=== PATIENT | male | born 1960 | race Hispanic/Latino ===

== ENCOUNTER → 2018-09-02 | Day surgery (SDC) | payer OTHER ==
[~2018-09-02] VITALS: Ht 182.9 cm; Wt 86.2 kg
[~2018-09-02] MED LIST: ASPIRIN 81 MG CHEW TAB PO ONE; ASPIRIN 81 MG CHEW TAB PO STA; ASPIRIN 81 MG ENTERIC COATED PO SCH; FENTANYL CITRATE/PF 100MCG/2 ML INJ ONE; GLIMEPIRIDE2 MG PO; HEPARIN SOD/SOD CHLORIDE 2,000 ML ONE; IOPAMIDOL 370 MG/ML 200 ML INFUS..BTL INJ ONE; LIDOCAINE HCL 2% LOCAL 20 ML VIAL ONE; LOSARTAN POTASS25 MG PO; LOVASTATIN40 MG PO; LOW DOSE ASPIRI81 MG PO; MIDAZOLAM HCL 2 MG/2 ML VIAL ONE; NITROGLYCERIN 2% OINT 1 GM PKT TOP STA; SODIUM CHLORIDE 0.9% 1000ML 1,000 ML ONE
[2018-09-02 10:29] LABS: BASOPHILS # (AUTO) 0.1 (0.0-0.1); BASOPHILS % 0.4 % (0.0-1.0); EOSINOPHILS # (AUTO) 0.1 (0.0-0.4); EOSINOPHILS % 0.4 % (0.0-6.0); HEMATOCRIT 44.3 % (38.2-49.6); HEMOGLOBIN 15.3 g/dL (14.0-18.0); LYMPHOCYTES # (AUTO) 2.7 (1.0-3.2); LYMPHOCYTES % 23.5 % (18.0-39.1); MEAN CORPUSCULAR HEMOGLOBIN 32.1 pg (28-32); MEAN CORPUSCULAR HGB CONC 34.5 g/dL (31-35); MEAN CORPUSCULAR VOLUME 92.9 fL (81-99); MONOCYTES # (AUTO) 1.1 (0.2-0.8); MONOCYTES % 9.9 % (4.4-11.3); NEUTROPHILS # (AUTO) 7.3 (2.1-6.9); NEUTROPHILS % 64.5 % (38.7-80.0); PLATELET COUNT 251 x10e3/uL (140-360); RED BLOOD COUNT 4.77 x10e6/uL (4.3-5.7); RED CELL DISTRIBUTION WIDTH 12.7 % (11.7-14.4)
[2018-09-02 10:36] LABS: INR 0.93; PROTHROMBIN TIME 13.3 seconds (11.9-14.5)
[2018-09-02 10:37] LABS: PARTIAL THROMBOPLASTIN TIME 27.4 seconds (23.8-35.5)
[2018-09-02 10:46] LABS: ALANINE AMINOTRANSFERASE 109 IU/L (0-55); ALBUMIN 3.3 g/dL (3.5-5.0); ALBUMIN/GLOBULIN RATIO 0.9 (0.8-2.0); ALKALINE PHOSPHATASE 157 IU/L (40-150); ANION GAP 18.8 mmol/L (8-16); BLOOD UREA NITROGEN 14 mg/dL (7-26); BUN/CREATININE RATIO 13 (6-25); CALCIUM 9.8 mg/dL (8.4-10.2); CARBON DIOXIDE 21 mmol/L (22-29); CHLORIDE 98 mmol/L (98-107); CREATINE KINASE 468 IU/L (30-200); CREATININE, SERUM 1.07 mg/dL (0.72-1.25); EST GLOMERULAR FILTRATION RATE > 60 ML/MIN (60-); GLUCOSE 332 mg/dL (74-118); POTASSIUM 3.8 mmol/L (3.5-5.1); SODIUM 134 mmol/L (136-145)
--- NOTE | 2018-09-02 13:53 | Operative Report ---
DATE OF PROCEDURE: September 02, 2018 INDICATIONS: [id number] NC. DESCRIPTION OF PROCEDURE: After informed consent, the patient was brought to the cardiac catheterization laboratory and placed on the table. Both groins were painted and draped in a sterile fashion. Lidocaine was injected into the right groin for local anesthesia. Right femoral artery was accessed by Seldinger technique. A 5-Ukrainian sheath was placed in the right femoral artery. Left main artery was cannulated using a JL4 5-Ukrainian catheter. Coronary angiogram was performed and images obtained in multiple views. Right coronary artery was cannulated using a 3DRC 5-Ukrainian catheter and images obtained in multiple views. LV-gram was performed using a pigtail catheter. Patient tolerated the procedure without any complications. REPORT LEFT MAIN: Normal caliber and has luminal irregularities. LEFT ANTERIOR DESCENDING: Normal caliber and has a long 99% proximal lesion. The first diagonal branch is diffusely diseased with 70% proximal branch stenosis. The target in the distal LAD is good. LEFT CIRCUMFLEX: Normal caliber and has a 99% proximal lesion and another 80% mid-lesion after the 1st obtuse marginal branch. The distal targets are good. 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 No distal targets visualized. LV-GRAM: The inferior wall is severely hypokinetic. The overall ejection fraction is 20%. HEMODYNAMICS: LV pressure is 120/55. LV pressure is 118/7. LVEDP is 19. PLAN: CABG. Job#: [id number] CT
--- NOTE | 2018-09-02 15:00 | History and Physical ---
DATE OF ADMISSION: September 02, 2018 CHIEF COMPLAINT: [id number] NM. HISTORY OF PRESENT ILLNESS: Mr. Francisco is a 57-year-old gentleman with past medical history as listed below. Reportedly, he has been experiencing chest pain off and on since Wednesday. Today, he to see his PCP, Dr. Carrasco who sent him to the ER. He was noted to have elevated troponin and so I was consulted. The patient states he feels better now. He was given nitro in the ER. The patient said the chest pain was intermittent lasting anywhere from 15 to 20 minutes, nonradiating at times. He is short-winded. He smokes every day and smoked for several years and speaks mostly Vietnamese. Most of the history is obtained through an access consultant. REVIEW OF SYSTEMS: CONSTITUTIONAL: Has some fatigue and weakness. HEENT: No headache, blurring of vision, seizure or syncope. CARDIOVASCULAR: Chest pain and some dyspnea. No orthopnea or PND. RESPIRATORY: No cough, fever or expectoration. GI: No abdominal pain, vomiting or diarrhea. : No dysuria, frequency or incontinence. ALLERGIES: NO KNOWN DRUG ALLERGIES. MEDICATIONS: See list. PAST MEDICAL HISTORY: History of hypertension. History of diabetes mellitus. SOCIAL HISTORY: Smokes a pack a day and smoked for more than 40 years. Drinks alcohol one to 2 times a week. FAMILY HISTORY: Noncontributory. PHYSICAL EXAMINATION: VITAL SIGNS: Heart rate 80, blood pressure 131/81, respiratory rate 18. GENERAL: An obese gentleman, alert and oriented and not in any obvious distress. HEENT: Atraumatic. NECK: No JVD, bruit, thyromegaly or lymphadenopathy. CARDIOVASCULAR: First and second heart sounds heard. No murmurs, rubs or gallops appreciated. CHEST: Decreased air entry at the bases. No adventitious sounds appreciated. ABDOMEN: Soft, nontender. EXTREMITIES: No edema. EKG shows sinus rhythm at 90 beats per minute. Normal axis. Interventricular conduction delay Q waves III and aVF, ST depression in I and II, V3 to V6. T-wave inversions in III and aVF. LABORATORY DATA: Sodium is 134, potassium 3.8, chloride is 98. Bicarb is 21. BUN is 14, creatinine 1.0. Troponin 29.0. WBC 11.3. Hemoglobin is 15.3. Hematocrit 44.3. Platelets are 251,000. IMPRESSION 1. Non-ST elevation myocardial infarction. 2. History of hypertension. 3. History of diabetes mellitus. 4. Obesity. 5. Tobacco use. PLAN: Due to elevated troponin, will take the patient to the cardiac catheterization laboratory for cardiac cath and possible PCI. Patient has been explained about the procedure, risks, benefits, complications, alternatives through access consultant and he understands and agrees to it. Will treat him with appropriate medications including antiplatelet, antithrombotics, aspirin, beta blockers, [place] inhibitors, statins, etc. as indicated. Will get an echocardiogram to assess LV function and valvular function. The patient has been counseled regarding tobacco cessation. As always I appreciate and thank you very much for your referrals. Job#: [id number]
--- NOTE | 2018-09-06 11:27 | Diagnostic Imaging Report ---
PROCEDURE: A single AP view of the chest. COMPARISON: None. INDICATIONS: LEFT CHEST PAIN, RADIATES TO BACK. SHORTNESS OF BREATH, COUGH. ABNORMAL EKG FINDINGS: Lines/tubes: None. Lungs: The lungs are moderately inflated. Linear subsegmental atelectasis at the right lung base. Mild patchy bibasilar opacities. Mild perihilar and interstitial opacities. Pleura: There is no pleural effusion or pneumothorax. Heart and mediastinum: The cardiomediastinal silhouette is unremarkable. Bones: No acute bony abnormality. IMPRESSION: Mild pulmonary interstitial edema. Patchy bibasilar opacities, likely atelectasis. Dictated by: TRUNG MALHOTRA M.D. on 09/06/2018 at 11:35 Electronically approved by: TRUNG MALHOTRA M.D. on 09/06/2018 at 11:35
== END | disposition short-term general hospital (02) ==
LOC: ER 09:44 → ERHOLD 11:26 → UNDOADMIN 11:26 → CATH LAB 12:47
DX: I21.4 Non-ST elevation (NSTEMI) myocardial infarction (principal); I10 Essential (primary) hypertension; E11.9 Type 2 diabetes mellitus without complications; E66.9 Obesity, unspecified; F17.210 Nicotine dependence, cigarettes, uncomplicated; Z82.49 Family history of ischemic heart disease and other diseases of the circulatory system
CPT/HCPCS: 36415; 71045; 80053; 82550; 82553; 83880; 84484; 85025; 85610; 85730; 93005; 93458; 99284; J2001; J2250; J7030; Q9967

== ENCOUNTER → 2023-01-29 | Outpatient (CLI) | payer OTHER ==
[~2023-01-29] MED LIST changes: -ASPIRIN 81 MG CHEW TAB PO ONE; -ASPIRIN 81 MG CHEW TAB PO STA; -ASPIRIN 81 MG ENTERIC COATED PO SCH; -FENTANYL CITRATE/PF 100MCG/2 ML INJ ONE; -HEPARIN SOD/SOD CHLORIDE 2,000 ML ONE; -IOPAMIDOL 370 MG/ML 200 ML INFUS..BTL INJ ONE; -LIDOCAINE HCL 2% LOCAL 20 ML VIAL ONE; -MIDAZOLAM HCL 2 MG/2 ML VIAL ONE; -NITROGLYCERIN 2% OINT 1 GM PKT TOP STA; -SODIUM CHLORIDE 0.9% 1000ML 1,000 ML ONE
== END ==
LOC: RAD 14:06
PROVIDERS: ATTEND Internal Medicine
DX: M43.07 Spondylolysis, lumbosacral region (principal)
CPT/HCPCS: 72110

== ENCOUNTER 2025-08-24 06:36 | Emergency (ER) | payer OTHER ==
[~2025-08-24] VITALS: Ht 170.2 cm; Wt 87.1 kg
[2025-08-24 06:50] VITALS: PULSE 61; RESP 17; TEMP 97.6
[2025-08-24] MEDS ORDERED: SODIUM CHLORIDE FLUSH 10 ML SYR IV PRN (07:00)
[2025-08-24 07:08] LABS: BASOPHILS % 0.1 % (0.0-1.0); EOSINOPHILS % 0.0 % (0.0-6.0); LYMPHOCYTES % 5.8 % (18.0-39.1); MONOCYTES % 6.4 % (4.4-11.3); NEUTROPHILS % 86.9 % (38.7-80.0); RED CELL DISTRIBUTION WIDTH 13.2 % (11.7-14.4)
[2025-08-24] MEDS: SODIUM CHLORIDE 0.9% 1000ML 1,000 ML IV ONE (07:14)
[2025-08-24 07:25] LABS: EST GLOMERULAR FILTRATION RATE 76.0 ML/MIN (>=60)
[2025-08-24 07:30] LABS: INR 1.01
[2025-08-24] MEDS ORDERED: IOPAMIDOL 370 MG/ML 100 ML INFUS..BTL INJ ONE (07:44)
[2025-08-24] MEDS ORDERED: SODIUM CHLORIDE 0.9% 100 ML ONE (07:44)
[2025-08-24] MEDS: MAGNESIUM SULFATE 2GM/50ML 50 ML IV ONE (10:07)
[2025-08-24] MEDS ORDERED: HEPARIN SOD/DEXTROSE 5% 25000 UNIT/250 ML BAG IV SCH (10:15)
[2025-08-24] MEDS: HEPARIN SOD (PORCINE) 5,000 UNIT/ML VIAL IV ONE (10:20)
[2025-08-24] MEDS ORDERED: HEPARIN 25,000 UNIT/D5W 250ML 250 ML IV SCH (10:30)
[2025-08-24] MEDS ORDERED: ONDANSETRON HCL INJ 2MG/ML 2ML 2 MG/ML VIAL IV STA (11:40)
[2025-08-24] MEDS ORDERED: Morphine 4mg INJECTION 4 MG/ML INJ IV ONE (11:45)
[2025-08-24] MEDS ORDERED: INSULIN REGULAR, HUMAN 100 UNIT/1 ML IV ONE (12:15)
[2025-08-24 13:04] VITALS: TEMP 98.3
[2025-08-24 16:03] VITALS: BP 145/78; PULSE 68; RESP 17; O2SAT 97
== END 2025-08-24 16:11 | disposition short-term general hospital (02) ==
LOC: ER 06:42
DX: R11.2 Nausea with vomiting, unspecified (principal); K55.059 Acute (reversible) ischemia of intestine, part and extent unspecified; K55.069 Acute infarction of intestine, part and extent unspecified; K92.1 Melena; R10.30 Lower abdominal pain, unspecified
CPT/HCPCS: 36415; 74174; 80053; 83605; 85025; 85610; 85730; 86850; 86900; 93005; 99284; J1644; J2470; J2543; J3475; J7030; J7050; Q9967